=== PATIENT | male | born 1995 | race Caucasian/White ===

== ENCOUNTER 2017-11-06 18:22 | Emergency (ER) | payer OTHER ==
[~2017-11-06] VITALS: Ht 172.7 cm; Wt 56.2 kg
[2017-11-06 18:29] VITALS: Ht 172.7 cm; Wt 56.2 kg
[2017-11-06 21:36] VITALS: BP 131/79
== END 2017-11-06 21:36 | disposition home or self-care (01) ==
LOC: ED 18:22
DX: F41.1 Generalized anxiety disorder (principal); F32.9 Major depressive disorder, single episode, unspecified; K21.9 Gastro-esophageal reflux disease without esophagitis